=== PATIENT | female | born 1945 | race Hispanic/Latino ===

== ENCOUNTER 2017-06-06 12:55 | Outpatient (CLI) | payer MEDICARE, BC ==
--- NOTE | 2017-06-06 15:08 | ULT ---
THYROID ULTRASOUND: HISTORY: Followup nodule. TECHNIQUE: Multiple longitudinal and transverse images of the thyroid gland are obtained using a Multi-Hertz abram ear array transducer. FINDINGS: Real-time and color-flow images demonstrate both thyroid lobes to be visualized. The right lobe estelita ures 3.8 x 1.3 x 1.4 cm, where the left measures 3.4 x 1.5 x 1.4 cm. The isthmus has a thickness of 3 mm. There is a small cyst in the mid pole of the right thyroid lobe, measuring 6 x 8 x 6 mm. A so lid, more inferior right thyroid lesion is seen, measuring 9 x 10 x 8 mm. This is very similar in si ze to previous comparison lesion in the same area, which measured 11 x 8 x approximately 10 mm. A tiny hypoechoic cyst is also seen in the left thyroid lobe, measuring 3 x 2 x 4 mm. IMPRESSION: Solid thyroid lesion, lower pole, right thyroid lobe, slightly smaller or very similar in size to pre vious comparison ultrasound. POS: [facility]
== END 2017-06-06 12:56 | disposition home or self-care (01) ==
LOC: ULT 12:55
PROVIDERS: ATTEND Otolaryngology Plastic Surgery within the Head & Neck
DX: E04.1 Nontoxic single thyroid nodule (principal); E07.89 Other specified disorders of thyroid
CPT/HCPCS: 76536

== ENCOUNTER 2018-02-03 09:38 | Outpatient (CLI) | payer MEDICARE, BC | END 2018-02-03 09:39 | disposition home or self-care (01) | LOC: BICMAMMO 09:38 | PROVIDERS: ATTEND Family Medicine | DX: Z12.31 Encounter for screening mammogram for malignant neoplasm of breast (principal); R92.1 Mammographic calcification found on diagnostic imaging of breast; Z80.3 Family history of malignant neoplasm of breast | CPT/HCPCS: 77063; 77067 ==

== ENCOUNTER 2018-04-18 15:15 | Outpatient (CLI) | payer MEDICARE, BC ==
[2018-04-18 15:46] LABS: Estimated GFR-MDRD - POC Greater than 90
[2018-04-18] MEDS ORDERED: Iopamidol 370 76% 100 ML VIAL ONE (16:28)
--- NOTE | 2018-04-18 16:34 | CT ---
CT ABDOMEN AND PELVIS WITH IV CONTRAST: 04/18/2018 HISTORY: Diverticulitis. Abdominal pain with bleeding and constipation. The patient states left lower quadra nt pain for the past few weeks. COMPARISON: 04/12/2012 FINDINGS: The lung bases are clear. A subcentimeter, [id number]-characterize, hypodense lesion is seen in the mid portion of the right kidney. The kidneys otherwise have a normal CT appearance bilaterally. The liver, spleen, pancreas, bilateral adrenal glands, and urinary bladder demonstrate a normal CT ap pearance. The uterus is not visualized and is likely surgically absent. There is colonic diverticulosis with enumerable colonic diverticula in the region of the sigmoid colo n. The tip of the appendix is mildly prominent, measuring 10 mm, with calcification present, which m ay represent a tiny appendicolith. This is stable when compared to the prior exam and a study on 07/2006. There is no periappendiceal inflammatory stranding seen. Loops of small bowel are normal i n caliber. Vascular calcifications are seen in the abdominal aorta and involving the iliac arteries. There is no free fluid, fluid collection, or lymphadenopathy seen in the abdomen or pelvis. Degenera tive changes are seen in the spine. IMPRESSION: 1. No acute findings are seen in the abdomen or pelvis. 2. Stable prominence of the tip of the appendix with associated calcification at the tip of the appe ndix, which may represent an appendicolith. This appearance of the appendix is stable when compared to prior studies in 2012 and in 2006. 3. Colonic diverticulosis. 4. Hysterectomy. 5. Atherosclerotic vascular calcifications. 6. Subcentimeter, [id number]-[id number]-characterize, hypodense lesion, right kidney. POS: [facility]
== END 2018-04-18 15:16 | disposition home or self-care (01) ==
LOC: BICCT 15:15
PROVIDERS: ATTEND Physician Assistant Medical
DX: K59.00 Constipation, unspecified (principal); R10.9 Unspecified abdominal pain; K57.30 Diverticulosis of large intestine without perforation or abscess without bleeding; I70.90 Unspecified atherosclerosis; N28.89 Other specified disorders of kidney and ureter; Z90.710 Acquired absence of both cervix and uterus
CPT/HCPCS: 74177; 82565

== ENCOUNTER 2018-08-14 03:23 | Emergency (ER) | payer MEDICARE, BC ==
[2018-08-14 03:54] LABS: #Basophils 0.1 thou/uL (0.0-0.2); #Eosinphils 0.3 thou/uL (0.0-0.7); #Lymphocytes 2.4 thou/uL (1.20-3.40); #Monocytes 0.6 thou/uL (0.11-0.59); #Neutrophils 2.8 thou/uL (1.40-6.50); %Basophils 1.5 % (0.0-1.0); %Eosinophils 4.7 % (0.0-10.0); %Monocytes 9.1 % (0.0-10.0); %Neutrophils 45.7 % (42.0-75.0); Hemoglobin 13.4 g/dL (12.0-16.0); Mean Corpuscular HGB CONC 33.7 g/dL (32.0-36.0); Mean Corpuscular Hemoglobin 30.4 pg (27.0-31.0); Mean Corpuscular Volume 90.1 fL (78.0-98.0); Platelet Count 222 thou/uL (130-400); White Blood Cell (WBC) Count 6.1 thou/uL (4.8-10.8)
[2018-08-14 04:14] LABS: ALT (SGPT) 9 U/L (8-55); AST (SGOT) 12 U/L (5-34); Albumin 4.2 g/dL (3.4-4.8); Alkaline Phosphatase 103 U/L (40-150); Anion Gap 11 mmol/L (10-20); BUN (Urea Nitrogen) 13 mg/dL (9.8-20.1); Bilirubin, Total 0.4 mg/dL (0.2-1.2); Calc. Creatinine Clearance 0 mL/min (70-130); Calcium 9.8 mg/dL (7.8-10.44); Carbon Dioxide 26 mmol/L (23-31); Chloride 107 mmol/L (98-107); Estimated GFR-MDRD 73; Globulin 2.7 g/dL (2.4-3.5); Glucose 95 mg/dL (80-115); Potassium 3.8 mmol/L (3.5-5.1); Protein, Total 6.9 g/dL (6.0-8.3); Sodium 140 mmol/L (136-145)
[2018-08-14 04:40] LABS: Bilirubin Negative (Negative); Blood, Urine Negative (Negative); Clarity CLEAR (Clear); Glucose, Urine (Dipstick) Negative (Negative); Leukocyte Negative (Negative); Nitrite Negative (Negative); Protein, Urine (Dipstick) Negative (Neg-Trace); Specific Gravity, Urine 1.006 (1.002-1.036); Urobilinogen 0.2 mg/dL (0.2-1.0); pH, Urine 7.5 (5.0-9.0)
[2018-08-14] MEDS ORDERED: Ketorolac Tromethamine 30 MG/ML VIAL ONE (05:33)
--- NOTE | 2018-08-14 07:43 | RAD ---
CHEST 1 VIEW: INDICATION: Pounding headache. COMPARISON: Prior exam dated 03/04/2013. FINDINGS: Chronic lung changes are stable. Heart size is normal. No pleural effusion or pneumothorax is evide nt. No acute osseous abnormality is evident. IMPRESSION: No acute cardiopulmonary abnormality. POS: [facility]
== END 2018-08-14 06:52 | disposition home or self-care (01) ==
LOC: ERS 03:23
DX: R00.2 Palpitations (principal); I10 Essential (primary) hypertension; E78.5 Hyperlipidemia, unspecified; Z79.82 Long term (current) use of aspirin; Z79.899 Other long term (current) drug therapy
CPT/HCPCS: 36415; 71045; 80053; 81001; 84484; 85025; 93005; 96372; J1885

== ENCOUNTER 2019-02-04 09:27 | Outpatient (CLI) | payer MEDICARE, BC ==
--- NOTE | 2019-02-04 10:30 | MMO ---
Bilateral MAMMO Bilat Screen [facility]. CLINICAL HISTORY: Patient is 73 years old and is seen for screening. The patient has the following family history of breast cancer: sister. The patient has no personal history of cancer. VIEWS: The views performed were: bilateral craniocaudal with tomosynthesis and bilateral mediolateral oblique with tomosynthesis. FILMS COMPARED: The present examination has been compared to prior imaging studies performed at [facility] on 11/08/2014, 11/11/2015, 01/31/2017 and 02/03/2018. This study has been interpreted with the assistance of computer-aided detection. MAMMOGRAM FINDINGS: There are scattered fibroglandular densities. There are stable benign appearing calcifications seen in both breasts. There are also vascular calcifications. There are no suspicious masses, suspicious calcifications, or new areas of architectural distortion. IMPRESSION: THERE IS NO MAMMOGRAPHIC EVIDENCE OF MALIGNANCY. A ROUTINE FOLLOW-UP MAMMOGRAM IN 1 YEAR IS RECOMMENDED. THE RESULTS OF THIS EXAM WERE SENT TO THE PATIENT. ACR BI-RADS Category 2 - Benign finding MAMMOGRAPHY NOTE: 1. A negative mammogram report should not delay a biopsy if a dominant of clinically suspicious mass is present. 2. Approximately 10% to 15% of breast cancers are not detected by mammography. 3. Adenosis and dense breasts may obscure an underlying neoplasm. Reported by: ASHLY HERNANDEZ MD Electonically Signed: [id number]
== END 2019-02-04 09:28 | disposition home or self-care (01) ==
LOC: BICMAMMO 09:27
PROVIDERS: ATTEND Family Medicine
DX: Z12.31 Encounter for screening mammogram for malignant neoplasm of breast (principal); Z80.3 Family history of malignant neoplasm of breast
CPT/HCPCS: 77063; 77067

== ENCOUNTER 2019-02-16 16:41 | Outpatient (CLI) | payer MEDICARE, BC ==
--- NOTE | 2019-02-16 17:10 | RAD ---
RIGHT FOOT THREE VIEWS: History: Right foot pain following an injury. Comparison: 10-14-12 FINDINGS: Mild degenerative changes. Minimal first metatarsal phalangeal osteoarthrosis. No acute fracture or d islocation. IMPRESSION: No acute fracture or dislocation. POS: [facility]
== END 2019-02-16 16:42 | disposition home or self-care (01) ==
LOC: BICRAD 16:41
PROVIDERS: ATTEND Family Medicine
DX: M79.671 Pain in right foot (principal)

== ENCOUNTER 2019-03-23 12:43 | Outpatient (CLI) | payer MEDICARE, BC ==
--- NOTE | 2019-03-23 13:27 | ULT ---
THYROID ULTRASOUND: COMPARISON: 06/06/2017. HISTORY: Thyroid nodule FINDINGS: Thyroid isthmus measures 0.22 cm. Right thyroid lobe: 4.0 x 1.5 x 1.4 cm. Left thyroid lobe: 1.3 x 1.2 x 3.7 cm. 0.9 x 0.6 x 0.8 cm cyst in the midpole the right thyroid lobe. Solid nodule with vascularity and calc ifications in the right lower pole measuring 1.2 x 1.1 x 1.3 cm. Previously, this mass measured 1.0 x 0.8 x 0.9 cm Multiple subcentimeter anechoic foci in the left thyroid lobe, largest measuring 0.4 c m. IMPRESSION: TIRADS category 4, moderately suspicious. Enlarging solid mass with calcifications. Recommendation: Fine needle aspiration of the solid mass with calcifications in the lower pole of the right thyroid l obe. CODE T Transcribed Date/Time: 03/23/2019 1:37 PM
== END 2019-03-23 12:44 | disposition home or self-care (01) ==
LOC: BICULT 12:43
PROVIDERS: ATTEND Otolaryngology Plastic Surgery within the Head & Neck
DX: E04.1 Nontoxic single thyroid nodule (principal); E07.9 Disorder of thyroid, unspecified; E07.89 Other specified disorders of thyroid
CPT/HCPCS: 76536

== ENCOUNTER 2019-05-11 12:37 | Day surgery (SDC) | payer MEDICARE, BC ==
[2019-05-11] MEDS ORDERED: Lidocaine 1% PF 5 ML VIAL ONE (12:48)
--- NOTE | 2019-05-11 14:35 | ULT ---
Ultrasound-guided fine-needle aspiration biopsy thyroid: DATE: 05/11/2019 HISTORY: 73-year-old female with growing thyroid nodule with microcalcifications. TECHNIQUE: Signed informed consent obtained. Medial approach. Anterior neck skin prepped and draped in usual anahi rile fashion. 25-gauge needle used to apply buffered lidocaine superficially and deeply. Under ultrasound guidance, a series of 4 different 25-gauge needles mounted on 4 separate 5 cc syringes wer e used to aspirate the small, slightly greater than 1 cm solid nodule at the lower pole of the right lobe of thyroid gland containing multiple microcalcifications. Each sample was given to the lab oratory education technician. Patient tolerated procedure well. No comp occasions. IMPRESSION: Successful ultrasound-guided fine-needle aspiration x4 of the right lower pole thyroid nodule.
[2019-05-11 14:37] VITALS: BP 149/81; TEMP 98.6
== END 2019-05-11 14:10 | disposition home or self-care (01) ==
LOC: ULT 12:37
PROVIDERS: ATTEND Otolaryngology Plastic Surgery within the Head & Neck
PROC: 0GBH3ZX Excision of Right Thyroid Gland Lobe, Percutaneous Approach, Diagnostic (ICD-10-PCS; principal; 2019-05-11)
DX: E04.1 Nontoxic single thyroid nodule (principal); E07.89 Other specified disorders of thyroid; I10 Essential (primary) hypertension; F41.9 Anxiety disorder, unspecified; M81.0 Age-related osteoporosis without current pathological fracture; K21.9 Gastro-esophageal reflux disease without esophagitis; Z79.82 Long term (current) use of aspirin; Z79.899 Other long term (current) drug therapy; Z88.1 Allergy status to other antibiotic agents; Z88.2 Allergy status to sulfonamides
CPT/HCPCS: 60100; 76942; 88173; J2001

== ENCOUNTER 2020-02-08 09:32 | Outpatient (CLI) | payer MEDICARE, BC ==
--- NOTE | 2020-02-08 10:36 | MMO ---
Bilateral MAMMO Bilat Screen [facility]. CLINICAL HISTORY: Patient is 74 years old and is seen for screening. The patient has the following family history of breast cancer: sister. The patient has no personal history of cancer. VIEWS: The views performed were: bilateral craniocaudal with tomosynthesis and bilateral mediolateral oblique with tomosynthesis. FILMS COMPARED: The present examination has been compared to prior imaging studies performed at [facility] on 11/11/2015, 01/31/2017, 02/03/2018 and 02/04/2019. This study has been interpreted with the assistance of computer-aided detection. MAMMOGRAM FINDINGS: There are scattered fibroglandular densities. Finding 1: There are stable benign appearing calcifications seen in both breasts. Finding 2: There are stable benign appearing densities seen in both breasts. There are no suspicious masses, suspicious calcifications, or new areas of architectural distortion. IMPRESSION: THERE IS NO MAMMOGRAPHIC EVIDENCE OF MALIGNANCY. A ROUTINE FOLLOW-UP MAMMOGRAM IN 1 YEAR IS RECOMMENDED. THE RESULTS OF THIS EXAM WERE SENT TO THE PATIENT. ACR BI-RADS Category 2 - Benign finding MAMMOGRAPHY NOTE: 1. A negative mammogram report should not delay a biopsy if a dominant of clinically suspicious mass is present. 2. Approximately 10% to 15% of breast cancers are not detected by mammography. 3. Adenosis and dense breasts may obscure an underlying neoplasm. Reported by: YOSVANY MOREIRA MD Electonically Signed: [id number]
== END 2020-02-08 09:33 | disposition home or self-care (01) ==
LOC: BICMAMMO 09:32
PROVIDERS: ATTEND Family Medicine
DX: Z12.31 Encounter for screening mammogram for malignant neoplasm of breast (principal); Z80.3 Family history of malignant neoplasm of breast
CPT/HCPCS: 77063; 77067

== ENCOUNTER 2020-05-18 09:56 | Outpatient (CLI) | payer MEDICARE, BC | END 2020-05-18 09:57 | disposition home or self-care (01) | LOC: BICULT 09:56 | PROVIDERS: ATTEND Otolaryngology Plastic Surgery within the Head & Neck | DX: E04.1 Nontoxic single thyroid nodule (principal) | CPT/HCPCS: 76536 ==

== ENCOUNTER 2020-07-01 08:53 | Outpatient (CLI) | payer MEDICARE, BC ==
[2020-07-01 10:35] LABS: Hemoglobin 13.3 g/dL (12.0-15.5)
[2020-07-01 10:52] LABS: Anion Gap 14 mmol/L (10-20); BUN (Urea Nitrogen) 9 mg/dL (9.8-20.1); Calc. Creatinine Clearance 0 mL/min (70-130); Calcium 9.2 mg/dL (7.8-10.44); Carbon Dioxide 26 mmol/L (23-31); Chloride 99 mmol/L (98-107); Potassium 4.2 mmol/L (3.5-5.1); Sodium 135 mmol/L (136-145)
[2020-07-01 11:00] LABS: Glucose 54 mg/dL (83-110)
[2020-07-01 17:49] LABS: SARS-CoV-2 PCR by NAA Not Detected (NotDetected)
== END 2020-07-01 08:54 | disposition home or self-care (01) ==
LOC: LABBT 08:53
PROVIDERS: ATTEND Otolaryngology Plastic Surgery within the Head & Neck
DX: Z01.818 Encounter for other preprocedural examination (principal); E07.9 Disorder of thyroid, unspecified; H90.8 Mixed conductive and sensorineural hearing loss, unspecified; Z20.822 Contact with and (suspected) exposure to COVID-19
CPT/HCPCS: 80048; 85014; 85018; 93005; U0003; U0005; 87635; 93010

== ENCOUNTER 2020-07-08 09:58 | Outpatient (CLI) | payer MEDICARE, BC ==
[2020-07-08 19:16] LABS: SARS-CoV-2 PCR by NAA Not Detected (NotDetected)
== END 2020-07-08 09:59 | disposition home or self-care (01) ==
LOC: LABBT 09:58
PROVIDERS: ATTEND Otolaryngology Plastic Surgery within the Head & Neck
DX: Z01.812 Encounter for preprocedural laboratory examination (principal); E07.9 Disorder of thyroid, unspecified; H90.8 Mixed conductive and sensorineural hearing loss, unspecified; Z20.822 Contact with and (suspected) exposure to COVID-19
CPT/HCPCS: U0003; U0005; 87635

== ENCOUNTER 2020-07-13 09:15 | Day surgery (SDC) | payer MEDICARE, BC ==
[2020-07-05 09:37] VITALS: BMI 30.2
[2020-07-13] MEDS ORDERED: Lidocaine 1% w/Epinephrine 1:100K 20 ML VIAL ONE (11:18)
[2020-07-13] MEDS ORDERED: Bacitracin Zinc Ointment 30 gm TUBE ONE (11:18)
[2020-07-13] MEDS ORDERED: Fentanyl 100 MCG/2 ML VIAL ONE ×3 (11:19→13:29)
[2020-07-13] MEDS ORDERED: PROPOFOL 200 MG/20 ML VIAL ONE (11:45)
[2020-07-13] MEDS ORDERED: Dexamethasone 20 MG/5 ML VIAL ONE (11:45)
[2020-07-13] MEDS ORDERED: Lidocaine 1% PF 5 ML VIAL ONE (11:45)
[2020-07-13] MEDS ORDERED: Ondansetron PF 4 MG/2 ML Vial ONE (11:45)
[2020-07-13] MEDS ORDERED: Succinylcholine 200 MG/10 ml SYRINGE FS ONE (11:45)
[2020-07-13] MEDS ORDERED: Levofloxacin 500 mg/D5W 100 ml Premix Bag ONE (12:08)
[2020-07-13] MEDS ORDERED: hydrALAZINE 20 MG/ML VIAL ONE (13:40)
[2020-07-13] MEDS ORDERED: Morphine 2 MG/ML VIAL ONE ×2 (14:02→14:12)
[2020-07-13] MEDS ORDERED: Hydrocodone-Acetamin 15 ML UDCUP ONE (15:07)
== END 2020-07-13 15:50 | disposition home or self-care (01) ==
LOC: SDC 09:15
PROVIDERS: ATTEND Otolaryngology Plastic Surgery within the Head & Neck
PROC: 0GTH0ZZ Resection of Right Thyroid Gland Lobe, Open Approach (ICD-10-PCS; principal; 2020-07-13)
DX: E04.2 Nontoxic multinodular goiter (principal); H90.72 Mixed conductive and sensorineural hearing loss, unilateral, left ear, with unrestricted hearing on the contralateral side; I10 Essential (primary) hypertension; E78.5 Hyperlipidemia, unspecified; M81.0 Age-related osteoporosis without current pathological fracture; K21.9 Gastro-esophageal reflux disease without esophagitis; Z79.82 Long term (current) use of aspirin; Z79.899 Other long term (current) drug therapy; Z88.1 Allergy status to other antibiotic agents; Z88.2 Allergy status to sulfonamides
CPT/HCPCS: 60220; 82962; J2270; 36416; 88307; J0360; J1100; J1956; J2405; J2704; J3010

== ENCOUNTER 2020-10-07 10:42 | Day surgery (SDC) | payer MEDICARE, BC ==
[2020-10-06 10:49] VITALS: BMI 30.9
[2020-10-07] MEDS ORDERED: Fentanyl 100 MCG/2 ML VIAL ONE ×2 (12:18→13:06)
[2020-10-07] MEDS ORDERED: Midazolam HCl 2 mg/2 ml Vial ONE (12:18)
[2020-10-07] MEDS ORDERED: Dexamethasone 4 mg/ml Vial ONE (12:34)
[2020-10-07] MEDS ORDERED: Fentanyl 100 MCG/2 ML VIAL IV PRN (13:14)
[2020-10-07] MEDS ORDERED: Ondansetron PF 4 MG/2 ML Vial IVP PRN (13:15)
[2020-10-07] MEDS ORDERED: Promethazine HCl 25 MG/ML VIAL IM PRN (13:15)
[2020-10-07] MEDS ORDERED: traMADol HCl 50 MG TAB PO PRN ×2 (13:15)
[2020-10-07] MEDS ORDERED: Ropivacaine 0.2% 550 ML 550 ML NERVE BLCK SCH (13:15)
[2020-10-07] MEDS ORDERED: HYDROcodone/Acetaminophen 10/325 mg Tablet PO PRN ×2 (13:15)
[2020-10-07] MEDS ORDERED: Zolpidem Tartrate 5 MG TAB PO PRN (13:15)
[2020-10-07] MEDS ORDERED: Dexamethasone 20 MG/5 ML VIAL ONE (13:19)
[2020-10-07] MEDS ORDERED: PROPOFOL 200 MG/20 ML VIAL ONE (13:19)
[2020-10-07] MEDS ORDERED: Lidocaine 1% PF 5 ML VIAL ONE (13:19)
[2020-10-07] MEDS ORDERED: PHENYLEPHRINE-NS 100 MCG/ML 10 ML SYRINGE ONE (13:19)
[2020-10-07] MEDS ORDERED: Bupivacaine HCl 0.5%/Epinephrine 1:200,000/PF 30 ml Vial ONE (13:19)
[2020-10-07] MEDS ORDERED: Ondansetron PF 4 MG/2 ML Vial ONE (13:19)
[2020-10-07] MEDS ORDERED: ePHEDrine 50 MG/ML VIAL ONE (13:19)
[2020-10-07] MEDS ORDERED: Labetalol HCl 100 MG/20 ML VIAL ONE (15:16)
== END 2020-10-07 17:20 | disposition home or self-care (01) ==
LOC: SDC 10:42
PROVIDERS: ATTEND Orthopaedic Surgery
PROC: 0QSJ04Z Reposition Right Fibula with Internal Fixation Device, Open Approach (ICD-10-PCS; principal; 2020-10-07)
PROC: 0QSG04Z Reposition Right Tibia with Internal Fixation Device, Open Approach (ICD-10-PCS; 2020-10-07)
PROC: 3E0T3BZ Introduction of Anesthetic Agent into Peripheral Nerves and Plexi, Percutaneous Approach (ICD-10-PCS; 2020-10-07)
PROC: 3E0T3BZ Introduction of Anesthetic Agent into Peripheral Nerves and Plexi, Percutaneous Approach (ICD-10-PCS; 2020-10-07)
DX: S82.851A Displaced trimalleolar fracture of right lower leg, initial encounter for closed fracture (principal); M85.871 Other specified disorders of bone density and structure, right ankle and foot; E89.0 Postprocedural hypothyroidism; I10 Essential (primary) hypertension; E78.5 Hyperlipidemia, unspecified; M81.0 Age-related osteoporosis without current pathological fracture; K21.9 Gastro-esophageal reflux disease without esophagitis; Z66 Do not resuscitate; Z79.82 Long term (current) use of aspirin; Z79.899 Other long term (current) drug therapy; Z88.1 Allergy status to other antibiotic agents; Z88.2 Allergy status to sulfonamides; W18.30XA Fall on same level, unspecified, initial encounter; Y92.008 Other place in unspecified non-institutional (private) residence as the place of occurrence of the external cause
CPT/HCPCS: 27822; 64446; 64447; 73610; 76000; A4306; C1713 ×3; J0690; J1100; J2250; J2405; J2704; J2795; J3010; J3490

== ENCOUNTER 2021-02-13 10:14 | Outpatient (CLI) | payer MEDICARE, BC | END 2021-02-13 10:15 | disposition home or self-care (01) | LOC: BICMAMMO 10:14 | PROVIDERS: ATTEND Family Medicine | DX: Z12.31 Encounter for screening mammogram for malignant neoplasm of breast (principal); Z80.3 Family history of malignant neoplasm of breast | CPT/HCPCS: 77063; 77067 ==

== ENCOUNTER 2021-05-21 15:06 | Emergency (ER) | payer MEDICARE, BC | END 2021-05-21 16:50 | disposition home or self-care (01) | LOC: ERS 15:06 | DX: M25.571 Pain in right ankle and joints of right foot (principal) ==

== ENCOUNTER 2021-09-25 11:27 | Outpatient (CLI) | payer MEDICARE, BC | END 2021-09-25 11:28 | disposition home or self-care (01) | LOC: BICRAD 11:27 | PROVIDERS: ATTEND Family Medicine | DX: M25.572 Pain in left ankle and joints of left foot (principal); M79.89 Other specified soft tissue disorders ==

== ENCOUNTER 2021-11-16 17:00 | Outpatient (CLI) | payer MEDICARE, BC | END 2021-11-16 17:01 | disposition home or self-care (01) | LOC: SLEEPLAB 17:00 | PROVIDERS: ATTEND Family Medicine | DX: G47.33 Obstructive sleep apnea (adult) (pediatric) (principal); G47.10 Hypersomnia, unspecified; R53.83 Other fatigue; E66.9 Obesity, unspecified; R06.83 Snoring; G47.00 Insomnia, unspecified; I10 Essential (primary) hypertension; F41.9 Anxiety disorder, unspecified; Z68.32 Body mass index [BMI] 32.0-32.9, adult | CPT/HCPCS: 95800 ==

== ENCOUNTER 2021-12-05 19:30 | Outpatient (CLI) | payer MEDICARE, BC | END 2021-12-05 19:31 | disposition home or self-care (01) | LOC: SLEEPLAB 19:30 | PROVIDERS: ATTEND Family Medicine | DX: G47.33 Obstructive sleep apnea (adult) (pediatric) (principal); G47.10 Hypersomnia, unspecified; G47.9 Sleep disorder, unspecified; R53.83 Other fatigue; F41.9 Anxiety disorder, unspecified; E66.9 Obesity, unspecified; R06.83 Snoring; G47.00 Insomnia, unspecified; Z68.32 Body mass index [BMI] 32.0-32.9, adult | CPT/HCPCS: 95811 ==

== ENCOUNTER 2022-02-15 10:43 | Outpatient (CLI) | payer MEDICARE, BC | END 2022-02-15 10:44 | disposition home or self-care (01) | LOC: BICMAMMO 10:43 | PROVIDERS: ATTEND Family Medicine | DX: Z12.31 Encounter for screening mammogram for malignant neoplasm of breast (principal); Z80.3 Family history of malignant neoplasm of breast | CPT/HCPCS: 77063; 77067 ==

== ENCOUNTER 2022-05-23 02:37 | Emergency (ER) | payer MEDICARE, BC ==
[2022-05-23 03:18] LABS: Bilirubin Negative (Negative); Blood, Urine Negative (Negative); Clarity Clear (Clear); Glucose, Urine (Dipstick) Normal (Negative); Ketone, Urine Negative (Negative); Leukocyte Negative Leu/uL (Negative); Nitrite Negative (Negative); Protein, Urine (Dipstick) Negative (Neg-Trace); Specific Gravity, Urine 1.004 (1.002-1.036); Urobilinogen Normal mg/dL (Less than 2)
[2022-05-23 05:27] LABS: #Eosinphils 0.2 thou/uL (0.0-0.7); #Lymphocytes 1.8 thou/uL (1.20-3.40); #Monocytes 0.5 thou/uL (0.11-0.59); #Neutrophils 3.1 thou/uL (1.40-6.50); %Basophils 0.5 % (0.0-1.0); %Eosinophils 3.7 % (0.0-10.0); %Lymphocytes 31.6 % (21.0-51.0); %Monocytes 9.2 % (0.0-10.0); %Neutrophils 54.9 % (42.0-75.0); Hemoglobin 14.1 g/dL (12.0-16.0); Mean Corpuscular Hemoglobin 30.5 pg (27.0-31.0); Mean Corpuscular Volume 89.7 fl (78.0-98.0); Mean Platelet Volume 8.4 fL (7.4-10.4); Platelet Count 231 10x3/uL (130-400); RBC Distribution Width 11.7 % (11.5-14.5); White Blood Cell (WBC) Count 5.7 10x3/uL (4.8-10.8)
[2022-05-23 05:56] LABS: ALT (SGPT) 7 U/L (8-55); AST (SGOT) 9 U/L (5-34); Albumin 3.9 g/dL (3.4-4.8); Alkaline Phosphatase 100 U/L (40-110); Anion Gap 15 mmol/L (10-20); BUN (Urea Nitrogen) 6 mg/dL (9.8-20.1); Bilirubin, Total 0.5 mg/dL (0.2-1.2); Calc. Creatinine Clearance 0 mL/min (70-130); Calcium 9.1 mg/dL (7.8-10.44); Carbon Dioxide 20 mmol/L (23-31); Chloride 111 mmol/L (98-107); Estimated GFR 85; Globulin 2.7 g/dL (2.4-3.5); Glucose 100 mg/dL (83-110); Lipase 26 U/L (8-78); Potassium 3.8 mmol/L (3.5-5.1); Protein, Total 6.6 g/dL (5.8-8.1); Sodium 142 mmol/L (136-145)
[2022-05-23] MEDS ORDERED: Iopamidol-370 76% 500 ML 1 ML ONE (17:10)
== END 2022-05-23 07:44 | disposition home or self-care (01) ==
LOC: ERS 02:37
DX: R10.9 Unspecified abdominal pain (principal); I10 Essential (primary) hypertension; Z79.82 Long term (current) use of aspirin; Z79.899 Other long term (current) drug therapy
CPT/HCPCS: 36415; 74177; 80053; 81003; 83605; 83690; 85025; 87086; Q9967

== ENCOUNTER 2022-09-26 12:05 | Outpatient (CLI) | payer MEDICARE, BC | END 2022-09-26 12:06 | disposition home or self-care (01) | LOC: RAD 12:05 | PROVIDERS: ATTEND Internal Medicine Rheumatology | DX: M25.562 Pain in left knee (principal); M17.12 Unilateral primary osteoarthritis, left knee ==

== ENCOUNTER 2022-10-16 13:01 | Outpatient (CLI) | payer MEDICARE, BC | END 2022-10-16 13:02 | disposition home or self-care (01) | LOC: BICMAMMO 13:01 | PROVIDERS: ATTEND Internal Medicine Rheumatology | DX: M81.0 Age-related osteoporosis without current pathological fracture (principal) | CPT/HCPCS: 77080 ==

== ENCOUNTER 2023-03-06 11:29 | Outpatient (CLI) | payer MEDICARE, BC | END 2023-03-06 11:30 | disposition home or self-care (01) | LOC: BICMAMMO 11:29 | PROVIDERS: ATTEND Family Medicine | DX: Z12.31 Encounter for screening mammogram for malignant neoplasm of breast (principal); Z80.3 Family history of malignant neoplasm of breast | CPT/HCPCS: 77063; 77067 ==

== ENCOUNTER 2023-07-27 17:47 | Emergency (ER) | payer MEDICARE, BC | END 2023-07-27 20:19 | disposition home or self-care (01) | LOC: ERS 17:47 | DX: S09.90XA Unspecified injury of head, initial encounter (principal); I10 Essential (primary) hypertension; W22.8XXA Striking against or struck by other objects, initial encounter | CPT/HCPCS: 70450 ==

== ENCOUNTER 2024-03-23 12:22 | Outpatient (CLI) | payer MEDICARE, BC | END 2024-03-23 12:23 | disposition home or self-care (01) | LOC: BICMAMMO 12:22 | PROVIDERS: ATTEND Family Medicine | DX: Z12.31 Encounter for screening mammogram for malignant neoplasm of breast (principal); Z80.3 Family history of malignant neoplasm of breast | CPT/HCPCS: 77063; 77067 ==